=== PATIENT | female | born 1985 | race Caucasian/White ===

== ENCOUNTER 2024-09-22 16:50 | Emergency (ER) | payer BC ==
[2024-09-22 17:40] LABS: Glucose, Urine (Dipstick) Normal (Negative); Leukocyte 25 (Negative); Protein, Urine (Dipstick) Negative (Neg-Trace); Specific Gravity, Urine 1.015 (1.005-1.030)
[2024-09-22 17:55] LABS: Bacteria/HPF Rare-Few HPF (None Seen); CAUTI Indications for Culture Pelvic or flank pain; RBC/HPF 0-3 HPF (0-3)
[2024-09-22 17:57] LABS: Urine Culture Reflex No No
== END 2024-09-22 19:32 ==
LOC: CSHERS 16:50
DX: R10.9 Unspecified abdominal pain (principal)
CPT/HCPCS: 81001; 99284